=== PATIENT | male | born 1975 | race Two or more races ===

== ENCOUNTER 2022-10-23 11:35 | Emergency (ER) | payer MEDICAID, OTHER ==
[~2022-10-23] VITALS: Ht 175.3 cm; Wt 93.2 kg
[2022-10-23] MEDS ORDERED: TETANUS-DIPTH-ACEL PERTUSSIS 0.5ML SYR Tdap IM ONE (15:15)
[2022-10-23] MEDS ORDERED: LIDOCAINE 1% HCL (LOCAL ANESTH.) INJ 20ML MDV ID ONE (15:15)
[2022-10-23] MEDS ORDERED: SOD CHL 0.45% 1,000 ML IV ONE (17:00)
[2022-10-23] MEDS ORDERED: ceFAZolin 2 GM/D5W100ml 100 ML IV ONE (17:00)
[2022-10-23 18:17] VITALS: BP 121/80; PULSE 72; RESP 15; TEMP 97.8; O2SAT 100
== END 2022-10-23 18:31 | disposition hospice, inpatient (51) ==
LOC: ER 11:35
DX: S61.012A Laceration without foreign body of left thumb without damage to nail, initial encounter (principal); W26.8XXA Contact with other sharp object(s), not elsewhere classified, initial encounter; Y93.89 Activity, other specified; Y92.89 Other specified places as the place of occurrence of the external cause; Y99.8 Other external cause status
CPT/HCPCS: 12001; 73130; 90471; 90715; 96365; 99285; J2001